=== PATIENT | male | born 1970 | race African-American/Black ===

== ENCOUNTER 2018-01-18 20:13 | Emergency (ER) | payer OTHER, SELFPAY ==
[2018-01-18] MEDS ORDERED: Lidocaine 1% w/Epinephrine 1:100K 30 ML VIAL ONE (20:30)
[2018-01-18] MEDS ORDERED: Amoxicillin/Potassium Clav 875 MG TAB ONE (20:31)
[2018-01-18] MEDS ORDERED: Sodium Bicarb 50 MEQ/50 ML Abboject 8.4% SYRINGE ONE (20:32)
[2018-01-18] MEDS ORDERED: Sodium Bicarbonate 2.5 MEQ/5 ML VIAL ONE (20:33)
[2018-01-18] MEDS ORDERED: Adacel (T-DAP) 0.5 ML VIAL ONE (20:35)
[2018-01-18] MEDS ORDERED: Bacitracin Zinc 1 Packet ONE (21:48)
== END 2018-01-18 21:59 | disposition home or self-care, planned readmission (81) ==
LOC: NAV ERS 20:13
DX: S61.412A Laceration without foreign body of left hand, initial encounter (principal); W22.8XXA Striking against or struck by other objects, initial encounter
CPT/HCPCS: 12001; 90471; 90715; J2001

== ENCOUNTER 2018-02-02 16:15 | Emergency (ER) | payer SELFPAY | END 2018-02-02 16:40 | disposition home or self-care (01) | LOC: NAV ERS 16:15 | DX: S61.411D Laceration without foreign body of right hand, subsequent encounter (principal) ==